=== PATIENT | female | born 1980 | race Caucasian/White ===

== ENCOUNTER 2018-06-04 13:20 | Emergency (ER) | payer OTHER, SELFPAY ==
[2018-06-04 13:27] VITALS: BP 145/84; PULSE 96; RESP 20; TEMP 37; O2SAT 100
--- NOTE | 2018-06-04 13:36 | W.ED.GENAD ---
Discharge Plan Disposition Patient Disposition: HOME Condition: Improving Discharge Details Chief Complaint: AnimalBite Clinical Impression: Cat bite Primary Care Provider: Mignon Padron ED Provider: Dwayne Jackson Home Meds and New Rx's Prescriptions: New amoxicillin-pot clavulanate 875-125 mg tablet 1 tab PO BID 10 Days Qty: 20 RF: 0 Continued ibuprofen 200 MG tablet 1 tab PO PRN PRNRF: 0 cholecalciferol (vitamin D3) 1,000 UNITS tablet 1 tab PO DAILY RF: 0 calcium carbonate-vitamin D3 [Calcium 500 + D] 1 EACH tablet 1 tab PO DAILY RF: 0 Glucosamine Sulf-Chondroitin 1 EACH capsule 1 cap PO DAILY RF: 0 Discharge Instructions Instructions: Animal Bite (ED) Additional Instructions: Take Augmentin as prescribed for 10 days time. May apply topical antibiotic such as bacitracin to wounds once daily for the next 3 days. Return for any acute concern Medical Decision Making 37-year-old female presents after Bite to the face from an immunized animal. She is an otherwise healthy woman. She has 1 nearly 1 cm laceration of the bridge of the nose; with other small punctate wounds. Discussed with him that I do not feel it is in her favor to repair the wound. Will let it heal by secondary intention. The wounds were cleansed and dressed with bacitracin. I will place her on a course of Augmentin. She is stable for discharge to home HPI General Mode of arrival: ambulatory. Date/Time Provider Initiated Documentation: 06/04/18 13:32. Limitations to Documentation: no limitations. Information obtained by: patient. History of Present Illness 37 year old F presents to the emergency department with the chief complaint of Bite to face. Animal is immunized, described as moderate, Quality is described as aching, and is localized to the face. Patient reports no radiation. Patient started experiencing this minute(s) and it has been constant. No relieving factors improve symptom(s), No exacerbating factors reported . Patient notes no other symptoms.. Patient did receive the following treatments prior to arrival, none Related Data Home Medications Medication Instructions Recorded Confirmed Glucosamine Sulf-Chondroitin 1 cap PO DAILY 12/01/13 06/04/18 calcium carbonate-vitamin D3 1 tab PO DAILY 12/01/13 06/04/18 [Calcium 500 + D] cholecalciferol (vitamin D3) 1 tab PO DAILY 12/01/13 06/04/18 ibuprofen 1 tab PO PRN PRN 12/01/13 06/04/18 amoxicillin-pot clavulanate 1 tab PO BID 10 Days #20 tab 06/04/18 Previous Rx's Medication Instructions Recorded amoxicillin-pot clavulanate 1 tab PO BID 10 Days #20 tab 06/04/18 Allergies Allergy/AdvReac Type Severity Reaction Status Date / Time coconut oil Allergy Intermediate Nausea Unverified 06/04/18 13:30 gluten Allergy Intermediate Nausea Unverified 06/04/18 13:30 latex Allergy Intermediate Skin Rash Unverified 06/04/18 13:30 sweet potatoes Allergy Severe tongue Uncoded 06/04/18 13:30 swollen General Stated Complaint: AnimalBite CRISTO: 3 Review of Systems Review of Systems 6 systems reviewed and otherwise negative [facility] Social History Smoking and Tabacco status: Never Exam Narrative Exam Narrative: GEN: awake, alert, oriented 3. Pleasant, well groomed, interactive. HEAD: Normocephalic, atraumatic ENT: Mucous membranes moist, oropharynx unremarkable, External ear exam unremarkable. There is punctate lacerations at the tip of the nose, there is a linear transverse 1/2-1 cm laceration at the left bridge of the nose. EYES: PERRL, EOMI NECK: Full ROM, no LUMA, no menigismus CHEST/RESP: Nontender, clear to auscultation bilateral, no wheeze/rhonchi/rales CARDIOVASCULAR: RRR, no murmur, rub kayley. 2+ Rad pulse bilateral Neuro: Grossly normal neurologic exam, conversant, interactive. Psych: Speech fluent, thoughts congruent, affect normal Course Vital Signs Temperature 37 C 06/04/18 13:27 Pulse 96 H 06/04/18 13:27 Respiratory Rate 20 06/04/18 13:27 Blood Pressure 145/84 H 06/04/18 13:27 Pulse Oximetry 100 06/04/18 13:27 Temperature 37 C 06/04/18 13:27 Temperature Source Temporal Artery Scan 06/04/18 13:27 Pulse 96 H 06/04/18 13:27 Respiratory Rate 20 06/04/18 13:27 Respiratory Effort Non-Labored 06/04/18 13:27 Blood Pressure 145/84 H 06/04/18 13:27 Pulse Oximetry 100 06/04/18 13:27 Oxygen Delivery Method Room Air 06/04/18 13:27 Oxygen Flow Rate 0 06/04/18 13:27 Pain Level 8 06/04/18 13:27
--- NOTE | 2018-06-04 13:42 | NUR.NOTE ---
Nursing Note: Animal Bite Report form faxed to the [facility] [employer] for follow up. Fax [phone] Abbi Berman.
[2018-06-04 16:25] VITALS: BP 145/84; PULSE 96; RESP 20; TEMP 37; O2SAT 100
== END 2018-06-04 13:48 | disposition home or self-care (01) ==
LOC: ER 13:57
PROVIDERS: Emergency Provider Emergency Medicine; PCP Nurse Practitioner Adult Health
DX: S01.25XA Open bite of nose, initial encounter (principal); W55.01XA Bitten by cat, initial encounter; Y99.0 Civilian activity done for income or pay
CPT/HCPCS: 99283

== ENCOUNTER 2021-02-09 01:12 | Outpatient (CLI) | payer OTHER, SELFPAY ==
--- NOTE | 2021-02-09 | DI.MAMMO_ITS ---
Exam(s) MAMMO SCREENING EXAM: MAMMO SCREENING CLINICAL HISTORY: SCREENING,Z12.39,FIBROCYSTIC BREAST DISEASE,[id number] TECHNIQUE: Bilateral full field digital CC and MLO mammographic images were obtained with 3D tomosyn thesis and utilizing computer aided detection (CAD). COMPARISON: None. FINDINGS: Masses/Architectural Distortion: None seen. Microcalcifications: No suspicious pleomorphic-type are seen. Skin Thickening/Nipple Retraction: None. IMPRESSION: 1. No significant interval change with no specific features of malignancy noted. 2. Unless there is more urgent need, screening mammography is recommended, as per [employer] guidelines. BI-RADS Category 1 - Negative Breast Density - Category C - Heterogeneously dense Breast density category C or D implies that the patient has dense breast tissue. Dense breast tissue is very common and is not abnormal but dense breast tissue can make it harder to find cancer on a ma mmogram. Also, dense breast tissue may increase their breast cancer risk. This information about the result of the mammogram report was provided to the patient to raise their awareness. Use this report when you speak with the patient about their risks for breast cancer, which includes their family hist ory. At that time, you may recommend for more screening tests (Ultrasound or MRI) as they might be us eful based on their risk. A negative radiographic report should not delay biopsy if a dominant or clinically suspicious mass is present. Up to ten percent of cancers are not identified on mammography. A negative report may reinforce clinical impression. Adenosis and dense breasts may obscure an underlying neoplasm. False positive reports average 6 to 10%. Patient will receive a letter notifying them of these results.
== END 2021-02-09 01:32 ==
PROVIDERS: PCP Nurse Practitioner Adult Health; Visit Provider Internal Medicine
DX: Z12.31 Encounter for screening mammogram for malignant neoplasm of breast (principal); R92.8 Other abnormal and inconclusive findings on diagnostic imaging of breast
CPT/HCPCS: 77063; 77067

== ENCOUNTER 2022-05-16 02:07 | Outpatient (CLI) | payer OTHER, SELFPAY ==
--- NOTE | 2022-05-16 | DI.MAMMO_ITS ---
Exam(s) MAMMO SCREENING EXAM: MAMMO SCREENING CLINICAL HISTORY: ID AUTH# [id number] SCREENING FOR BREAST CANCER Z12.39. TECHNIQUE: Bilateral full field digital CC and MLO mammographic images were obtained with 3D tomosyn thesis and utilizing computer aided detection (CAD). COMPARISON: Prior baseline 2020 mammogram was reviewed FINDINGS: Scattered benign punctate microcalcifications are again noted throughout both breasts. There are no malignant-appearing microcalcification groups. No right breast nodules evident. Asymmetric density laterally in the left lung measuring 5 x 4 millimeters approximately 11 cm in from the nipple. There is no significant architectural distortion nor skin thickening-retraction. IMPRESSION: No radiographic evidence of malignancy in the right breast. Asymmetric density-possible nodule laterally in left breast. Spot compression view and ultrasound re commended. BI-RADS Category 0 - Assessment Incomplete: Need additional imaging evaluation Breast Density - Category B - Scattered areas of fibroglandular density Breast density Category C or D implies that the patient has dense breast tissue. Dense breast tissue can make it harder to find cancer on a mammogram. Dense breast tissue is also associated with an incr eased risk of breast cancer. This information about the result of the mammogram report was provided to the patient to raise their awareness. Use this report when you speak with the patient about their risks for breast cancer, which includes their family history. At that time, you may recommend additional screening tests (Ultrasoun d or MRI) as these tests may add significant information. A negative radiographic report should not delay biopsy if a dominant or clinically suspicious mass is present. Up to ten percent of cancers are not identified on mammography. A negative report may reinforce clinical impression. Adenosis and dense breasts may obscure an underlying neoplasm. False positive reports average 6 to 10%. Patient will receive a letter notifying them of these results.
== END 2022-05-16 02:27 ==
PROVIDERS: PCP Nurse Practitioner Adult Health; Visit Provider Internal Medicine
DX: Z12.31 Encounter for screening mammogram for malignant neoplasm of breast (principal); R92.8 Other abnormal and inconclusive findings on diagnostic imaging of breast
CPT/HCPCS: 77063; 77067

== ENCOUNTER 2022-05-23 01:28 | Outpatient (CLI) | payer OTHER, SELFPAY ==
--- NOTE | 2022-05-23 | DI.US_ITS ---
Exam(s) MG MAMMO SCREEN CALL BACK UNI US BREAST LT LIMITED EXAM: MG MAMMO SCREEN CALL BACK UNI and U/S breast LT limited CLINICAL HISTORY: F/U MAMMO,R92.8,ASYMMETRIC DENSITY LT BREAST,? NODULE,[id number]. TECHNIQUE: Craniocaudal and mediolateral oblique Full Field Digital Mammography views of the left br east with Computer Aided Diagnosis followed by Tomosynthesis and left breast ultrasound. COMPARISON: Comparison is made with prior examinations. FINDINGS: Mammography/Tomosynthesis: Masses/Architectural Distortion: None seen. Microcalcifictions: No suspicious pleomorphic-type are seen. Skin Thickening/Nipple Retraction: None. Limited left breast US: Echotexture: Normal appearance of the glandular tissue. Shadowing: No suspicious foci. Cyst: None. Solid lesions: None seen. Ductal dilation: None. IMPRESSION: 1. No evidence of malignancy is noted. 2. Unless there is more urgent need, follow-up screening mammography is recommended, as per [employer] guidelines. 3. The findings were discussed with the patient on the date of the examination. BI-RADS Category 1 - Negative Breast Density - Category B - Scattered areas of fibroglandular density Breast density Category C or D implies that the patient has dense breast tissue. Dense breast tissue can make it harder to find cancer on a mammogram. Dense breast tissue is also associated with an incr eased risk of breast cancer. This information about the result of the mammogram report was provided to the patient to raise their awareness. Use this report when you speak with the patient about their risks for breast cancer, which includes their family history. At that time, you may recommend additional screening tests (Ultrasoun d or MRI) as these tests may add significant information. A negative radiographic report should not delay biopsy if a dominant or clinically suspicious mass is present. Up to ten percent of cancers are not identified on mammography. A negative report may reinforce clinical impression. Adenosis and dense breasts may obscure an underlying neoplasm. False positive reports average 6 to 10%. Patient will receive a letter notifying them of these results.
== END 2022-05-23 01:48 ==
PROVIDERS: PCP Nurse Practitioner Adult Health; Visit Provider Internal Medicine
DX: Z12.31 Encounter for screening mammogram for malignant neoplasm of breast (principal); R92.8 Other abnormal and inconclusive findings on diagnostic imaging of breast; N64.59 Other signs and symptoms in breast
CPT/HCPCS: 76642; 77063; 77067

== ENCOUNTER 2023-04-13 01:50 | Outpatient (CLI) | payer OTHER, SELFPAY ==
[2023-04-13 07:48] LABS: Abs Immature Grans 0.04 10^3/uL (0.0-0.06); Absolute Basophil Count 0.05 10^3/uL (0.0-0.2); Absolute Eosinophil Count 0.23 10^3/uL (0.0-0.7); Absolute Monocyte Count 0.47 10^3/uL (0.1-0.8); Absolute Neutrophil Count 3.96 10^3/uL (1.2-6.7); Basophils % 0.7; Eosinophils % 3.2; HCT 40.3 % (36.0-46.0); HGB 13.8 g/dL (11.2-15.7); Immature Grans % 0.6; Lymphocytes % 34.5; MCH 31.7 pg (27.0-33.0); MCHC 34.2 % (32.0-36.0); MCV 93 fL (80-95); MPV 9.6 fL (8.0-11.0); Monocytes % 6.5; Neutrophils % 54.5; Platelet Count 343 10^3/uL (130-400); RBC 4.35 10^6/uL (3.93-5.22); RDW 12.6 % (11.7-14.6); RDW-SD 43.2 fL; WBC 7.25 10^3/uL (4.4-10.8)
== END 2023-04-13 01:51 | disposition home or self-care (01) ==
LOC: LBO 01:50
PROVIDERS: PCP Nurse Practitioner Adult Health; Visit Provider Obstetrics & Gynecology
DX: Z01.818 Encounter for other preprocedural examination (principal)
CPT/HCPCS: 36415; 86850; 86900; 86901; 85025

== ENCOUNTER 2023-04-18 06:03 | Day surgery (SDC) | payer OTHER, SELFPAY ==
[2023-04-18] VITALS (9 sets, daily range): BP systolic 91–138; BP diastolic 39–75; PULSE 70–85; RESP 12–23; TEMP 36.3–36.5; O2SAT 94–99; BMI 41.2
[2023-04-18] MEDS: Lactated Ringers 1,000 ML 125 ML IV (06:42)
--- NOTE | 2023-04-18 07:05 | W.ANESPRE ---
General Info Date of Service Date Performed: 04/18/23 Height: 5 ft 6 in Weight: 115.8 kg Body Mass Index (BMI): 41.2 Surgical Procedure: Operation Date: 04/18/23 07:40 Proposed Procedure Side Surgeon p Diagnostic Possible Operative Laparoscopy, Endometrial Biopsy Evelyn Trevizo DO s Insertion of IUD Evelyn Trevizo DO Meds Allergies and Home Medications Allergies Allergy/AdvReac Type Severity Reaction Status Date / Time latex Allergy Intermediate Skin Rash Unverified 04/18/23 06:08 gluten AdvReac Intermediate Nausea Unverified 04/18/23 06:08 sweet potatoes Allergy Severe tongue Uncoded 04/18/23 06:08 swollen Home Medication Medication Instructions Recorded calcium carbonate 500 mg-vitamin 1 tab PO DAILY 12/01/13 D3 10 mcg (400 unit) tablet (Calcium 500 + D) cholecalciferol (vitamin D3) 25 1 tab PO DAILY 12/01/13 mcg (1,000 unit) tablet glucosamine sulfate dipotassium Cl 1 cap PO DAILY 12/01/13 500 mg-chondroitin 400 mg capsule (Glucosamine Sulfate 2 KCL-Chondroitin) ibuprofen 200 mg tablet 1 tab PO PRN PRN 12/01/13 Current Visit Medications: Current Medications Generic Name Dose Route Start Last Admin Trade Name Freq PRN Reason Stop Dose Admin Ringer's Solution 1,000 mls @ 125 mls/hr 04/18/23 06:00 04/18/23 06:42 IV 05/17/23 23:59 125 mls/hr INFUSION JUAN Administration IV Miscellaneous Supplies 1 each 04/18/23 06:00 Iv Access IV 05/17/23 23:59 DIRECTED JUAN Sodium Chloride 0 ml 04/18/23 06:00 Normal Saline Flush 10 Ml Syr IV 05/17/23 23:59 PRN PRN Sodium Chloride 0 ml 04/18/23 06:00 Normal Saline 10 Ml Vial IJ 05/17/23 23:59 DIRECTED PRN Sterile Water 0 ml 04/18/23 06:00 Water,Injection,Sterile 10 Ml Vial IJ 05/17/23 23:59 DIRECTED PRN PFSH Active Problems Active Problems: Problem Status Onset Code Preop testing Z01.818 Dysmenorrhea N94.6 Pelvic pain R10.2 Medical History Medical History Heart murmur per patient ECHO 2018 showed a very tiny leaky valve. Family history of stroke Family history of hypertension Family history of cardiovascular disease Ocular migraine Surgical History Surgical History History of colonoscopy History of tonsillectomy H/O thumb surgery History of surgery tennis elbow S/P left knee arthroscopy History of laparoscopic appendectomy Tobacco Smoking/Tobacco Use Status: Never Alcohol Alcohol Intake: never Substance Use Substance use: Never Substance use type: does not use Vital Signs and Lab Results Vital Signs Most Recent Vital Signs in EMR: Most Recent Vital Signs Temp Pulse Resp BP Pulse Ox 36.5 C 85 16 138/75 98 04/18/23 06:32 04/18/23 06:32 04/18/23 06:32 04/18/23 06:32 04/18/23 06:32 Lab Results Blood Type / Crossmatch: Patient ABO/Rh A Positive 04/13/23 Antibody Screen NEGATIVE 04/13/23 Complete Blood Count: White Blood Count 7.25 10^3/uL (4.4-10.8) 04/13/23 07:29 Red Blood Count 4.35 10^6/uL (3.93-5.22) 04/13/23 07:29 Hemoglobin 13.8 g/dL (11.2-15.7) 04/13/23 07:29 Hematocrit 40.3 % (36.0-46.0) 04/13/23 07:29 Platelet Count 343 10^3/uL (130-400) 04/13/23 07:29 Complete Metabolic Panel: No Data to Display Liver Function Panel: No Data to Display Coagulation Panel: No Data to Display Cardiac Panel: No Data to Display Arterial Blood Gas: No Data to Display Venous Blood Gas: No Data to Display Pancreas Panel: No Data to Display Thyroid Panel: No Data to Display Infectious Disease: No Data to Display Blood Cultures: No Data to Display Toxicology Panel: No Data to Display Panel: No Data to Display Anesthesia Assessment and Plan Anesthesia History Personal History: No History of Anesthesia Complications Family History: Other Exercise Tolerance Exercise Tolerance: Metabolic Equivalents>4 Pertinent Negatives Pertinent Negatives: No Symptoms of GERD Cardiac & Pulmonary Exam Cardiac Exam: Normal S1/S2 Heart Sounds Pulmonary Exam: Clear Bilateral Breath Sounds Implantable Cardiac Device Does patient have a Pacemaker or an ICD?: No Airway Exam Known Difficult Airway: No Mallampati Class: 2 Mouth Opening: Normal (> 3cm) Thyromental Distance: Greater than 3 cm Neck Range of Motion: Full ROM Neck Circumference: Normal Teeth Condition: Normal Dentition ASA Classification ASA Score: ASA 2 Emergency Case?: No NPO Status NPO Status: NPO Clears >2 hours, Solids >8 hours Status Status: Negative HCG Anesthesia Plan Resuscitation Status: Full Code Anesthesia Technique: General Anesthesia Airway Planned: Endotracheal Tube Monitors Used: Standard Monitors
[2023-04-18] MEDS: Bupivacaine 0.25% Pres-Free 30 ML VIAL (08:28)
--- NOTE | 2023-04-18 08:33 | ENDOMET_PTH ---
PATIENT: Gladys Morales LOC: [facility] U#:[id number] AGE/SX: 42/F ROOM: RE04/18/[address]: Evelyn Trevizo DO : 1980 BED: DIS: 04/18/2023 SPEC #: [id number] RECD: 04/18/23 12:41 STATUS: MEGA REQ #: [id number] KATLIN: 04/18/23 08:[address]: Evelyn Trevizo DEPT: Surgical Specimen RECD BY: Jelena Fraga ENTERED: 04/18/23 12:42 SP TYPE: Endomet OTHR DR: Mignon Padron Tissues: 1 - ENDOMETRIUM BX/AISHWARYA Procedures: GROSS AND MICRO LEVEL 4 Comments: [id number]
--- NOTE | 2023-04-18 09:05 | ROE_ITS ---
Date of service: 04/18/23 Time of Service: 09:05 Operative Note Operative Note DATE OF PROCEDURE: 04/18/23 PRE-OP DIAGNOSIS: Dysfunctional uterine bleeding, pelvic pain Same PROCEDURE: Diagnostic laparoscopy, endometrial biopsy, insertion of Mirena system SURGEON: Evelyn Trevizo ASSISTING SURGEON: Cecelia Blanchard ANESTHESIA TYPE: Local By Surgeon and General LMA/ETT Refer to Anesthesia Record ESTIMATED BLOOD LOSS: 10 PATHOLOGY: other (Endometrial biopsy) COMPLICATIONS: None Patient was transported to: PACU Patient's condition: stable Implants: Mirena, Lot:[id number] Expiration 04/23/2025 Indications: Heavy menstrual bleeding, pain Findings: Completely benign appearing abdomen and pelvis. Normal tubes, ovaries, uterus. No intra-abdominal pathology noted. No trauma apparent. No scar tissue, endometriosis. Smooth regular liver edge. Procedure Description: After full informed consent was obtained, patient was taken the operating suite with an IV running. She was placed in dorsal supine position and endotracheal intubation performed for the administration of general anesthesia with ease. She was prepped and draped in the usual sterile fashion. She had pneumatic med ic compression stockings for DVT prophylaxis. No antibiotic prophylaxis was necessary. Attention was turned to the vaginal vault where a speculum was inserted and a single-tooth tenaculum used to grasp the anterior lip of the cervix. Speculum was removed and tenaculum was used for uterine manipulation. Exam under anesthesia revealed a uterus that was midline and mobile without evidence of adnexal masses. At this point attention was turned to the abdomen where a small infraumbilical skin incision was made after infiltration with quarter percent Marcaine. The intra-abdominal wall was elevated with sharp towel clips and a varies needle inserted. Pneumoperitoneum created with a maximum pressure of 15 mmHg with CO2 gas. Under direct visualization a 12 mm sleeve and trocar were placed and the abdomen was inspected. There is no evidence of trauma, intra-abdominal or pelvic pathology. A second trocar site was placed under direct visualization after infiltration of quarter percent Marcaine with a 5 mm trocar. This allowed instrumentation for manipulation of the uterus, tubes, and ovaries. There was no evidence of endometriosis, scarring, fibroids, ovarian cysts. Tubes appeared benign bilaterally. The remainder of the abdomen was inspected. Cecum appears normal. Liver edge was smooth and regular. At this point the laparoscopic portion of the procedure was terminated. Pneumoperitoneum released. Infraumbilical fascial incision was closed with 0 Vicryl suture. Skin edge reapproximated with 4-0 undyed Monocryl suture. Steri-Strips and sterile dressings were placed. At this point attention was returned to the vaginal vault where a speculum was reinserted. Cervical os dilated to the point that an endometrial Pipelle of 3 mm could be passed and tissue sample was obtained. First attempt with placement of a ring that was unsuccessful in there was immediate expulsion of the device. A second Mirena system was inserted to the fundus deployed and retained. Strin gs were cut to 3 cm. Tenaculum was removed and puncture site was hemostatic. Speculum was removed and the patient was returned to the dorsal supine position. She woke from anesthesia without difficulty. She was taken the recovery suite in stable condition. Sponge lap and needle counts were correct x 2. Findings: No intra-abdominal or pelvic pathology noted. Normal tubes, ovaries, uterus. Complications: None apparent Fluids: Crystalloid per anesthesia EBL: 10 mL Implant, Mirena system as above.
[2023-04-18] MEDS: fentaNYL 100 MCG/2 ML VIAL IVP ×2 (09:25→09:38)
--- NOTE | 2023-04-18 10:48 | W.ANESPOSTOP ---
Postoperative Evaluation Date, Time and Location Date Performed: 04/18/23 Time Performed: 10:48 Patient Location: Day Surgery Unit Vital Signs Most Recent Imported Vital Signs: Most Recent Vital Signs Temp Pulse Resp BP Pulse Ox 36.5 C 77 16 108/52 L 98 04/18/23 10:23 04/18/23 10:23 04/18/23 10:23 04/18/23 10:23 04/18/23 10:23 Pain Score Most Recent Pain Score: Most Recent Pain Score Pain Level 1 04/18/23 10:23 Assessment Mental Status: Awake (Alert & Oriented to Patient Baseline) Airway and Respiratory Function: Patent airway with normal (patient baseline) respiratory exam Cardiovascular Function: Hemodynamically Stable Hydration Status: Adequately Hydrated Nausea & Vomiting: No Nausea or Vomiting Pain: Pt. Denies Any Pain Peripheral Nerve Block: Patient did not receive a nerve block
== END 2023-04-18 11:00 | disposition home or self-care (01) ==
PROVIDERS: PCP Nurse Practitioner Adult Health; Visit Provider Obstetrics & Gynecology
PROC: (CPT 49320; principal; 2023-04-18 07:30)
PROC: (CPT 49320; 2023-04-18 07:30)
DX: N94.6 Dysmenorrhea, unspecified (principal); R10.2 Pelvic and perineal pain
CPT/HCPCS: 49320; 58100; 58300; 88305; J0131; J1100; J1885; J2001; J2250; J2405; J2704; J3010

== ENCOUNTER 2023-11-28 10:05 | Day surgery (SDC) | payer OTHER, SELFPAY ==
[2023-11-28 10:08] VITALS: BP 123/75; PULSE 90; RESP 16; TEMP 36.1; O2SAT 96
--- NOTE | 2023-11-28 11:55 | PDOC.DSDIS_ITS ---
Date of service: 11/28/23 Time of Service: 11:55 Discharge Plan Disposition Patient Disposition: Home Condition: Good Discharge Details Reason For Visit: Excision cyst RIF Attending Provider: Raghav Carbajal Primary Care Provider: [facility] Home Meds and New Rx's Prescriptions: New acetaminophen 500 mg tablet 1,000 mg PO TID Qty: 90 0RF ibuprofen 600 mg tablet 600 mg PO TID PRN (Reason: pain) Qty: 90 0RF Continued Mirena 21 mcg/24 hours (8 yrs) 52 mg intrauterine device 1 device intrauterine ONCE Qty: 1 0RF Rx Instructions: as a single dose cholecalciferol (vitamin D3) 1,000 UNITS tablet 1 tab PO DAILY calcium carbonate-vitamin D3 [Calcium 500 + D] 1 EACH tablet 1 tab PO DAILY Glucosamine Sulf-Chondroitin 1 EACH capsule 1 cap PO DAILY Discontinued naproxen [EC-Naproxen] 500 mg tablet,delayed release (DR/EC) 500 mg PO BID PRN (Reason: pain) Qty: 30 0RF meloxicam 7.5 mg tablet 7.5 mg PO DAILY Qty: 30 1RF ibuprofen 200 MG tablet 1 tab PO PRN PRN ibuprofen 800 mg tablet 800 mg PO Q8H PRNQty: 60 1RF Discharge Instructions Additional Instructions: Cyst Excision Discharge Instructions Activity: You should keep the hand elevated as much as possible for the first few days. You may use the other fingers as tolerated but avoid trying to do too much too soon. Dressing/Cast: You may remove the dressing after 48 hours. At that time you may get the incision wet. You may place a Band-Aid over the incision if desired. Medications: - You should take Tylenol and Ibuprofen for baseline pain control. - You may apply ice over the finger. Follow-up: 7-10 days Referrals: Raghav Carbajal MD [ [facility] STAFF PHYSICIAN] - Activity:: Activity as Tolerated Remove Dressings/Wound Care:: 48 hours Shower/Bathe:: 48 hours Diet:: As Tolerated Discharge Orders Discharge Orders: Discharge Order (Routine); Ordered 11/28/23 Ordered By: Jose David Wilcox DS: Diagnosis Discharge Diagnosis (1) Ganglion cyst of finger of right hand: Status: Acute
[2023-11-28] MEDS: Lidocaine 1% Multi-Dose W/EPI 1/100,000 50 ML VIAL (12:02)
[2023-11-28] MEDS: Sodium Bicarbonate 50 MEQ/50 ML VIAL (12:02)
[2023-11-28 12:28] VITALS: BP 123/74; PULSE 84; RESP 18; TEMP 36.1; O2SAT 100
--- NOTE | 2023-11-28 15:12 | ROE_ITS ---
Date of service: 11/28/23 Time of Service: 12:00 Operative Note Operative Note DATE OF PROCEDURE: 11/28/23 PRE-OP DIAGNOSIS: Right index finger mucous cyst POST-OP DIAGNOSIS: same PROCEDURE: Mucous Cyst Excision -right index finger SURGEON: Raghav Carbajal ANESTHESIA TYPE: Local By Surgeon Refer to Anesthesia Record ESTIMATED BLOOD LOSS: 5 PATHOLOGY: none sent COMPLICATIONS: None Patient was transported to: same day Patient's condition: stable Indications: I have seen Gladys in clinic for symptoms of a digital mucous cyst. The mass persisted and caused pain to direct contact and with use. The diagnosis of a mucous cyst was made. The symptoms had not responded to conservative measures. I discussed cyst excision with the patient. I reviewed the risks of the procedure to include, but not limited to, bleeding, infection, pain, stiffness, recurrence, damage to nerves or vessels. Despite these risks, the patient elected to proceed. Findings: There is a very small cyst about the DIP joint of the ulnar aspect of the right index finger. There is notable capsular thickening this area and some synovitis. The cyst was removed. An arthrotomy was performed. The synovium was resected. Procedure Description: Gladys was greeted in the preoperative holding area where the correct side was identified and marked. The consent was reviewed with the patient and signed. All questions were answered. She was taken back to the operating room. The patient was placed into the supine position on the operating room table with the right arm on an arm board. All bony prominences were well padded. No prophylactic antibiotics were admini stered since this was a clean, elective hand surgical case. The right arm was then prepped with Chloraprep and draped in a standard fashion with stockinette and extremity drape. A timeout to confirm correct identity, side and site, procedure, allergies, anesthesia, and medical concerns was performed. A digital block was then performed using 1% lidocaine with epinephrine and buffered with sodium bicarbonate. This was allowed time to set up completely and was tested before proceeding with the case. A longitudinal incision was then made overlying the cyst. The skin was incised sharply. Full-thickness flaps were then elevated to expose the cyst. The cyst seem to be actually within the joint itself. An arthrotomy was made at the ulnar aspect of the DIP joint where there is a small amount cystic fluid encountered. There was notable thickening of the capsule of the DIP joint of the ulnar aspect. There is also some underlying synovitis. Rongeur was utilized to debride some of the synovitis. I also removed a portion of the capsule in this area. There is no significant bone spurs. The finger was irrigated and once again checked to make sure that all components of the cyst were removed. The soft tissue surrounding this area also inspected. The finger was also palpated and the prominence of which she complained was no longer. The skin was then closed using a #4-0 nylon in interrupted fashion. The finger was dressed with Xeroform, 4 x 4, conformer dressing. The patient tolerated the procedure well and was returned to the Same Day Surgery area in a stable condition suffering no known complication.
== END 2023-11-28 12:40 | disposition home or self-care (01) ==
PROVIDERS: Visit Provider Student in an Organized Health Care Education/Training Program
PROC: (CPT 26160; principal; 2023-11-28 12:00)
DX: M67.441 Ganglion, right hand (principal)
CPT/HCPCS: 26160; J2004

== ENCOUNTER 2024-06-27 00:17 | Outpatient (CLI) | payer OTHER, SELFPAY ==
--- NOTE | 2024-06-27 | DI.MAMMO_ITS ---
Exam(s) MAMMO SCREENING EXAM: MAMMO SCREENING CLINICAL HISTORY: SCREENING, Z13.21, [id number]. TECHNIQUE: Bilateral full field digital CC and MLO mammographic images were obtained with 3D tomosyn thesis and utilizing computer aided detection (CAD). COMPARISON: Prior mammograms were reviewed. Prior breast ultrasound 05/23/2022 also reviewed. FINDINGS: There has been no significant change in the appearance and distribution of the fibroglandular tissue. There are no new spiculated masses nor malignant-appearing microcalcification groups in either breast . Numerous benign-appearing punctate microcalcifications are noted in both breasts. There are no new spiculated masses nor malignant appearing microcalcification groups. There is no significant architectural distortion nor skin thickening-retraction. IMPRESSION: No radiographic evidence of malignancy. BI-RADS Category 1 - Negative Breast Density - Category B - Scattered areas of fibroglandular density Breast density Category C or D implies that the patient has dense breast tissue. Dense breast tissue can make it harder to find cancer on a mammogram. Dense breast tissue is also associated with an incr eased risk of breast cancer. This information about the result of the mammogram report was provided to the patient to raise their awareness. Use this report when you speak with the patient about their risks for breast cancer, which includes their family history. At that time, you may recommend additional screening tests (Ultrasoun d or MRI) as these tests may add significant information. A negative radiographic report should not delay biopsy if a dominant or clinically suspicious mass is present. Up to ten percent of cancers are not identified on mammography. A negative report may reinforce clinical impression. Adenosis and dense breasts may obscure an underlying neoplasm. False positive reports average 6 to 10%. Patient will receive a letter notifying them of these results.
== END 2024-06-27 00:37 ==
PROVIDERS: PCP Internal Medicine; Visit Provider Internal Medicine
DX: Z12.31 Encounter for screening mammogram for malignant neoplasm of breast (principal); R92.323 Mammographic fibroglandular density, bilateral breasts
CPT/HCPCS: 77063; 77067